=== PATIENT | female | born 1990 | race African-American/Black ===

== ENCOUNTER 2020-01-28 08:00 | Outpatient (CLI) | payer OTHER ==
[2020-01-28 19:40] LABS: CANDIDA KRUSEI DNA NEGATIVE (NEGATIVE)
[2020-01-28 19:41] LABS: CANDIDA GROUP DNA NEGATIVE (NEGATIVE); TRICHOMONAS VAGINALIS DNA NEGATIVE (NEGATIVE)
== END 2020-01-28 23:59 | disposition home or self-care (01) ==
LOC: LAB.R 08:00
PROVIDERS: ATTEND Obstetrics & Gynecology
DX: N76.0 Acute vaginitis (principal)
CPT/HCPCS: 87661; 87801

== ENCOUNTER 2020-02-21 15:24 | Outpatient (CLI) | payer OTHER ==
[2020-02-21 15:40] VITALS: BP 115/60
--- NOTE | 2020-02-21 15:57 | PROVIDER PROGRESS NOTE ---
- HPI Chief Complaint: Other (29yo at 31 weeks by LMP c/w first trimester scan presents with concern about a bulge from her vagina noted last night. No pain, no fluid leak or bleeding. No n/v/c/f or dysuria. No contractions. Reports normal activity. States she was looking at herself and noted the bulge.) Current : Vital Signs Temperature 99.5 F 02/21/20 15:39 Heart Rate 96 02/21/20 15:39 Respiratory Rate 19 02/21/20 15:39 Blood Pressure 115/60 02/21/20 15:39 O2 Saturation 100 02/21/20 15:39 Temperature 99.5 F 02/21/20 15:39 Heart Rate 96 02/21/20 15:39 Respiratory Rate 19 02/21/20 15:39 Blood Pressure 115/60 02/21/20 15:39 O2 Saturation 100 02/21/20 15:39 - Exam No distress, normal appearance. Abd soft, gravid, non-tender. VE/ Normal female. Small cystocele that bulges to hymenal ring with valsalva. Small amount normal DC, cervix visually long/closed. - Procedures OB Procedure Performed: Other ( monitor; no contractions, category 1) Service Date of procedure: 02/21/20 - Plan Plan: Stable. Reassured. Plan DC home. F/U as scheduled in 10 days.
== END 2020-02-21 15:50 | disposition home or self-care (01) ==
LOC: WFO 15:24 → FBP 15:25 → WFO 15:50
PROVIDERS: ATTEND Obstetrics & Gynecology
DX: Z34.83 Encounter for supervision of other normal pregnancy, third trimester (principal)
CPT/HCPCS: 99212; 99213

== ENCOUNTER 2020-03-05 12:07 | Outpatient (CLI) | payer OTHER ==
[2020-03-05 12:13] VITALS: BP 94/45
--- NOTE | 2020-03-05 13:18 | Labor Flowsheet ---
Labor Flowsheet Datetime Report Generated by CPN: 03/05/2020 13:17 Datetime: 03/05/2020 12:42 UTERINE ACTIVITY Frequency (min): 0 ASSESSMENT A Monitor Mode: External US FHR Baseline Rate : 145 Variability: Moderate 6-25 bpm Accelerations: 15X15 Decelerations: None Category: Category I Comments: change in baseline to 135's, NST due to arrythmia Datetime: 03/05/2020 12:36 VITAL SIGNS NBP Sys/Faviola/Mean (mmHg): 112 : 64 : 75 Pulse: 89 COMMUNICATION LaborFlag: Labor Datetime: 03/05/2020 12:34 SpO2 (%): 100 Datetime: 03/05/2020 12:17 Patient Care Comments: apple juice brought to patient Datetime: 03/05/2020 12:08 Stage of : Labor PATIENT CARE Patient Position/Activity: Left Lateral
--- NOTE | 2020-03-12 23:09 | PROCEDURE REPORT ---
- HPI Diagnosis/Indication for NST: Other ( arrythmia) Current EDU 04/24/20 Gestation 32 Weeks and 6 Days 3 Para 2 Vital Signs Temperature 98.1 F 03/05/20 12:12 Heart Rate 94 03/05/20 12:12 Respiratory Rate 17 03/05/20 12:12 Blood Pressure 94/45 L 03/05/20 12:12 O2 Saturation 100 03/05/20 12:12 Temperature 98.1 F 03/05/20 12:12 Heart Rate 94 03/05/20 12:12 Respiratory Rate 17 03/05/20 12:12 Blood Pressure 94/45 L 03/05/20 12:12 O2 Saturation 100 03/05/20 12:12 - NST Procedure NST Procedure Start Date 03/05/20 Start Time 12:05 Vibroacoustic Stimulation Used No Patient States Movement Yes EFM 145 mod cristy 15x15 accels no decels TOCO: quiet - Results and Plan Findings/Impression: Patient is a 29-year-old G3, P2 at 32 weeks 6 days with a complicated by arrhythmia. -Category 1 tracing -Continue twice-weekly NST -Warning signs reviewed -Continue with routine OB care. -Discharge to home
== END 2020-03-05 12:45 | disposition home or self-care (01) ==
LOC: WFO 12:07 → FBP 12:08 → WFO 12:45
PROVIDERS: ATTEND Obstetrics & Gynecology
DX: O36.8330 Maternal care for abnormalities of the fetal heart rate or rhythm, third trimester, not applicable or unspecified (principal); Z3A.32 32 weeks gestation of pregnancy
CPT/HCPCS: 59025

== ENCOUNTER 2020-03-12 17:28 | Outpatient (CLI) | payer OTHER ==
--- NOTE | 2020-03-14 09:07 | Ultrasound Report ---
Reason: ARRHYTHMIA Procedure Date: 03/12/2020 Accession Number: [id number] / [id number] Procedure: US - OB Limited CPT Code: Final Report FULL RESULT: EXAM: LIMITED OBSTETRICAL ULTRASOUND EXAM DATE: 03/12/2020 07:30 PM. CLINICAL HISTORY: arrhythmia. COMPARISON: None. TECHNIQUE: Real-time sonographic evaluation of the fetus performed by the clinical safety manager. Multiple access services representative static images were saved for review. DATING: Established EGA 33 weeks, 6 days with SONIA 04/24/2020. GENERAL EVALUATION Hendricks . Cardiac activity: 137 bpm. movement: Visualized. Presentation: Cephalic Placenta: Posterior position. Amniotic fluid: Normal. ALLY 18.2 cm. MVP 6.2 cm. ANATOMY anatomic assessment not performed on the current study. MATERNAL STRUCTURES Limited assessment of the maternal structures is unremarkable. IMPRESSION: 1. Hendricks live intrauterine with gestational age 33 weeks, 6 days based on established SONIA. 2. Normal ALLY. ALLY 18.2 cm. MVP 6.2 cm. RADIA
== END 2020-03-12 17:29 | disposition home or self-care (01) ==
LOC: DI 17:28
PROVIDERS: ATTEND Obstetrics & Gynecology
DX: O36.8330 Maternal care for abnormalities of the fetal heart rate or rhythm, third trimester, not applicable or unspecified (principal); Z3A.33 33 weeks gestation of pregnancy
CPT/HCPCS: 76815

== ENCOUNTER 2020-03-30 08:00 | Outpatient (CLI) | payer OTHER ==
[2020-03-30 20:55] LABS: TRICHOMONAS VAGINALIS DNA NEGATIVE (NEGATIVE)
== END 2020-03-30 23:59 | disposition home or self-care (01) ==
LOC: LAB.R 08:00
PROVIDERS: ATTEND Obstetrics & Gynecology
DX: Z36.85 Encounter for antenatal screening for Streptococcus B (principal); Z36.89 Encounter for other specified antenatal screening
CPT/HCPCS: 87491; 87591; 87661; 87797

== ENCOUNTER 2020-03-30 08:34 | Outpatient (CLI) | payer OTHER ==
--- NOTE | 2020-04-02 16:07 | Ultrasound Report ---
Reason: ARRHYTHMIA Procedure Date: 03/30/2020 Accession Number: [id number] / [id number] Procedure: US - OB Limited CPT Code: Final Report FULL RESULT: PROCEDURE: OB Limited INDICATIONS: ARRHYTHMIA OUTSIDE/PRIOR DATING DATA: Last menstrual period (LMP): 07/19/2019. LMP-based estimated date of delivery (SONIA): 04/19/2020. First dating scan (date and location): 09/24/2019. Estimated date of delivery (SONIA) from first dating scan: 04/24/2020. TECHNIQUE: Real-time scanning was performed of the fetus, with image documentation. COMPARISON: 03/18/2020. FINDINGS: A single living intrauterine gestation is present. Presentation: Vertex Placenta: Placental position is posterior, without previa. Amniotic fluid index: 12.8 cm, largest pocket 4.2 cm, 41st percentile for gestational age. heart rate: 140 beats per minutes. Maternal cervical canal: Not visualized. Estimated gestational age from initial scan: 36 weeks 3 days. IMPRESSION: 1. Single live intrauterine at 36 weeks 3 days. 2. ALLY measures 12.8, compared to 18.2 on prior exam. Currently it is at the 41st percentile for gestational age. Reviewed by: Renea Sheikh MD on 04/02/2020 4:06 PM PDT Approved by: Renea Sheikh MD on 04/02/2020 4:06 PM PDT Station ID: [id number]
== END 2020-03-30 08:35 | disposition home or self-care (01) ==
LOC: DI 08:34
PROVIDERS: ATTEND Obstetrics & Gynecology
DX: O36.8330 Maternal care for abnormalities of the fetal heart rate or rhythm, third trimester, not applicable or unspecified (principal); Z3A.36 36 weeks gestation of pregnancy
CPT/HCPCS: 76815

== ENCOUNTER 2020-03-30 09:11 | Outpatient (CLI) | payer OTHER ==
[2020-03-30 09:19] VITALS: BP 109/68
--- NOTE | 2020-04-01 10:12 | PROCEDURE REPORT ---
- HPI Diagnosis/Indication for NST: Intrauterine growth restriction Current EDU 04/24/20 Gestation 36 Weeks and 3 Days 3 Para 2 Vital Signs Temperature 36.8 C 03/30/20 09:17 Heart Rate 97 03/30/20 09:17 Respiratory Rate 18 03/30/20 09:17 Blood Pressure 109/68 03/30/20 09:17 O2 Saturation 100 03/30/20 09:17 Temperature 36.8 C 03/30/20 09:17 Heart Rate 97 03/30/20 09:17 Respiratory Rate 18 03/30/20 09:17 Blood Pressure 109/68 03/30/20 09:17 O2 Saturation 100 03/30/20 09:17 - NST Procedure NST Procedure Start Date 03/30/20 Start Time 09:12 Stop Time 09:32 Vibroacoustic Stimulation Used No Patient States Movement Yes - Results and Plan Findings/Impression: BASELINE 130 Accelerations present Reactive Plan: continue twice weekly NST
== END 2020-03-30 09:35 | disposition home or self-care (01) ==
LOC: WFO 09:11 → FBP 09:12 → WFO 09:35
PROVIDERS: ATTEND Obstetrics & Gynecology
DX: O36.5930 Maternal care for other known or suspected poor fetal growth, third trimester, not applicable or unspecified (principal); O36.8330 Maternal care for abnormalities of the fetal heart rate or rhythm, third trimester, not applicable or unspecified; Z36.85 Encounter for antenatal screening for Streptococcus B; Z36.89 Encounter for other specified antenatal screening; Z3A.36 36 weeks gestation of pregnancy
CPT/HCPCS: 59025; 76815; 87491; 87591; 87661; 87797

== ENCOUNTER 2020-04-02 09:58 | Outpatient (CLI) | payer OTHER ==
[2020-04-02 10:07] VITALS: BP 107/64
--- NOTE | 2020-04-22 12:22 | PROCEDURE REPORT ---
- HPI Diagnosis/Indication for NST: Other ( arrythmia) Current EDU 04/24/20 Gestation 36 Weeks and 6 Days 3 Para 2 Vital Signs Heart Rate 95 04/02/20 10:05 Respiratory Rate 20 04/02/20 10:05 Blood Pressure 107/64 04/02/20 10:05 O2 Saturation 100 04/02/20 10:05 Temperature Heart Rate 95 04/02/20 10:05 Respiratory Rate 20 04/02/20 10:05 Blood Pressure 107/64 04/02/20 10:05 O2 Saturation 100 04/02/20 10:05 - NST Procedure NST Procedure Start Date 04/02/20 Start Time 10:00 Stop Time 10:40 Vibroacoustic Stimulation Used No Patient States Movement Yes EFM 135 mod cristy 15x15 accels no decels TOCO: irritable No evidence of arrythmia - Results and Plan Findings/Impression: 29 yo at 36+6 wga here for NST d/t arrythmia Cat I tracing Cont with twice weekly NST and weekly ALLY
== END 2020-04-02 10:45 | disposition home or self-care (01) ==
LOC: FBP 09:58 → WFO 09:58
PROVIDERS: ATTEND Obstetrics & Gynecology
DX: O36.831 Maternal care for abnormalities of the fetal heart rate or rhythm, first trimester (principal); O36.5993 Maternal care for other known or suspected poor fetal growth, unspecified trimester, fetus 3; Z3A.36 36 weeks gestation of pregnancy
CPT/HCPCS: 59025; 76816

== ENCOUNTER 2020-04-02 10:52 | Outpatient (CLI) | payer OTHER ==
--- NOTE | 2020-04-02 13:36 | Ultrasound Report ---
Reason: GROWTH RETARDATION Procedure Date: 04/02/2020 Accession Number: [id number] / [id number] Procedure: US - OB F/U or Repeat CPT Code: Final Report FULL RESULT: PROCEDURE: OB F/U or Repeat INDICATIONS: GROWTH RETARDATION OUTSIDE/PRIOR DATING DATA: Last menstrual period (LMP): 07/19/2019. LMP-based estimated date of delivery (SONIA): 04/05/2020. First dating scan (date and location): 09/24/2019. Estimated date of delivery (SONIA) from first dating scan: 04/24/2020. TECHNIQUE: Real-time scanning was performed of the fetus, with image documentation and biometric measurements. Endovaginal scanning: Not necessary. COMPARISON: 03/30/2020 FINDINGS: General: A single living intrauterine gestation is present. Presentation: Vertex Placenta: Placental position is posterior, without previa. Amniotic fluid index: 12.3 cm, normal for gestational age. heart rate: 150 beats per minute. Maternal cervical canal: Not seen due to Vertex presentation. biometrics: Biparietal diameter: 8.8 cm, 35 weeks 4 days Head circumference: 31.8 cm, 35 weeks 5 days Abdominal circumference: 31.8 cm, 35 weeks 5 days Femur length: 6.7 cm, 34 weeks 3 days Estimated gestational age from initial scan: 36 weeks 6 days. Composite gestational age from present scan: 35 weeks 3 days Estimated weight and percentile: 12/05/1937 9 g, lower 18th percentile Measurement variability in biometric dating: +/- 10 days from 12-20 weeks gestation, +/- 2 weeks from 20-30 weeks gestation, +/- 3 weeks at 30 weeks gestation or more. Other: Not applicable. IMPRESSION: Normal amniotic fluid volume. The current estimated weight is within the normal range for most accurate gestational age estimate from the first OB ultrasound. Vertex presentation, posterior placenta, the delivery date is projected to be centered on 04/24/2020. Reviewed by: Raghu Hernandez MD on 04/02/2020 1:35 PM PDT Approved by: Raghu Hernandez MD on 04/02/2020 1:35 PM PDT Station ID: [id number]
== END 2020-04-02 10:53 | disposition home or self-care (01) ==
LOC: DI 10:52
PROVIDERS: ATTEND Obstetrics & Gynecology
DX: O36.5990 Maternal care for other known or suspected poor fetal growth, unspecified trimester, not applicable or unspecified (principal); O36.8990 Maternal care for other specified fetal problems, unspecified trimester, not applicable or unspecified; Z3A.35 35 weeks gestation of pregnancy
CPT/HCPCS: 76816

== ENCOUNTER 2020-04-06 07:44 | Outpatient (CLI) | payer OTHER ==
--- NOTE | 2020-04-06 10:45 | Ultrasound Report ---
Reason: ARRHYTHMIA Procedure Date: 04/06/2020 Accession Number: [id number] / [id number] Procedure: US - OB Limited CPT Code: Final Report FULL RESULT: PROCEDURE: OB Limited INDICATIONS: ARRHYTHMIA OUTSIDE/PRIOR DATING DATA: Last menstrual period (LMP): 07/19/2019. LMP-based estimated date of delivery (SONIA): 04/19/2020. First dating scan (date and location): 09/24/2019. Estimated date of delivery (SONIA) from first dating scan: 04/24/2020. TECHNIQUE: Real-time scanning was performed of the fetus, with image documentation. COMPARISON: OB ultrasound 03/30/2020, 04/02/2020. FINDINGS: A single living intrauterine gestation is present. Presentation: Cephalic Placenta: Placental position is posterior, without previa. Amniotic fluid index: 12.7 cm, 42nd percentile for gestational age. Largest pocket measures 4.5 cm heart rate: 139 beats per minutes. Maternal cervical canal: Not visualized Estimated gestational age from initial scan: 37 weeks 3 days. IMPRESSION: 1. Single live intrauterine . 2. ALLY is within normal limits. Reviewed by: Renea Sheikh MD on 04/06/2020 10:44 AM PDT Approved by: Renea Sheikh MD on 04/06/2020 10:44 AM PDT Station ID: [id number]
== END 2020-04-06 07:45 | disposition home or self-care (01) ==
LOC: DI 07:44
PROVIDERS: ATTEND Obstetrics & Gynecology
DX: O36.8990 Maternal care for other specified fetal problems, unspecified trimester, not applicable or unspecified (principal); Z3A.37 37 weeks gestation of pregnancy
CPT/HCPCS: 76815

== ENCOUNTER 2020-04-06 08:27 | Outpatient (CLI) | payer OTHER ==
[2020-04-06 08:36] VITALS: BP 103/66
--- NOTE | 2020-04-22 12:36 | PROCEDURE REPORT ---
- HPI Diagnosis/Indication for NST: Other ( arrythmia) Current EDU 04/24/20 Gestation 37 Weeks and 3 Days 3 Para 2 Vital Signs Temperature 98.1 F 04/06/20 08:00 Heart Rate 106 H 04/06/20 08:00 Respiratory Rate 16 04/06/20 08:00 Blood Pressure 103/66 04/06/20 08:00 O2 Saturation 100 04/06/20 08:00 Temperature 98.1 F 04/06/20 08:00 Heart Rate 106 H 04/06/20 08:00 Respiratory Rate 16 04/06/20 08:00 Blood Pressure 103/66 04/06/20 08:00 O2 Saturation 100 04/06/20 08:00 - NST Procedure NST Procedure Start Date 04/06/20 Start Time 08:29 Stop Time 09:00 Vibroacoustic Stimulation Used Yes Patient States Movement Yes EFM 125 mod 15x15 accels no decels TOCO: quiet - Results and Plan Findings/Impression: 29 yo at 37+2 wga here for NST for arrythmia CAt I tracing Cont with twice weekly NST and weekly ALLY
== END 2020-04-06 09:00 | disposition home or self-care (01) ==
LOC: WFO 08:27 → FBP 08:28 → WFO 09:00
PROVIDERS: ATTEND Obstetrics & Gynecology
DX: O36.8990 Maternal care for other specified fetal problems, unspecified trimester, not applicable or unspecified (principal); Z3A.37 37 weeks gestation of pregnancy
CPT/HCPCS: 59025; 76815

== ENCOUNTER 2020-04-09 07:34 | Outpatient (CLI) | payer OTHER ==
[2020-04-09 08:10] VITALS: BP 112/61
--- NOTE | 2020-04-22 14:22 | PROCEDURE REPORT ---
- HPI Diagnosis/Indication for NST: Other ( arythmia) Current EDU 04/24/20 Gestation 37 Weeks and 6 Days 3 Para 2 Vital Signs Temperature 36.9 C 04/09/20 07:25 Heart Rate 91 04/09/20 07:25 Respiratory Rate 16 04/09/20 07:25 Blood Pressure 112/61 04/09/20 07:25 Temperature 36.9 C 04/09/20 07:25 Heart Rate 91 04/09/20 07:25 Respiratory Rate 16 04/09/20 07:25 Blood Pressure 112/61 04/09/20 07:25 O2 Saturation - NST Procedure NST Procedure Start Date 04/09/20 Start Time 07:25 Stop Time 07:54 Vibroacoustic Stimulation Used No Patient States Movement Yes - Results and Plan Findings/Impression: reactive NST Plan: continue with antinatal testing
== END 2020-04-09 08:00 | disposition home or self-care (01) ==
LOC: WFO 07:34 → FBP 07:35 → WFO 08:00
PROVIDERS: ATTEND Obstetrics & Gynecology
DX: O36.8330 Maternal care for abnormalities of the fetal heart rate or rhythm, third trimester, not applicable or unspecified (principal); Z3A.37 37 weeks gestation of pregnancy
CPT/HCPCS: 59025

== ENCOUNTER 2020-04-13 09:03 | Outpatient (CLI) | payer OTHER ==
[2020-04-13 09:13] VITALS: BP 109/65
--- NOTE | 2020-04-22 12:43 | PROCEDURE REPORT ---
- HPI Diagnosis/Indication for NST: Other ( arrythmia) Current EDU 04/24/20 Gestation 38 Weeks and 3 Days 3 Para 2 Vital Signs Temperature 98.2 F 04/13/20 09:13 Heart Rate 100 04/13/20 09:13 Respiratory Rate 18 04/13/20 09:13 Blood Pressure 109/65 04/13/20 09:13 O2 Saturation 100 04/13/20 09:13 Temperature 98.2 F 04/13/20 09:13 Heart Rate 100 04/13/20 09:13 Respiratory Rate 18 04/13/20 09:13 Blood Pressure 109/65 04/13/20 09:13 O2 Saturation 100 04/13/20 09:13 - NST Procedure NST Procedure Start Date 04/13/20 Start Time 08:57 Stop Time 09:30 Vibroacoustic Stimulation Used No Patient States Movement Yes EFM 135 mod cristy 15x15 accels no decels TOCO: quiet - Results and Plan Findings/Impression: 29 yo at 38+3 with arrythmia here for NST Cat I tracing Twice weekly NST and weekly ALLY IOL at 39 wga
== END 2020-04-13 09:30 | disposition home or self-care (01) ==
LOC: WFO 09:03 → FBP 09:06 → WFO 09:30
PROVIDERS: ATTEND Obstetrics & Gynecology
DX: O36.832 Maternal care for abnormalities of the fetal heart rate or rhythm, second trimester (principal); Z3A.38 38 weeks gestation of pregnancy
CPT/HCPCS: 59025; 76815

== ENCOUNTER 2020-04-16 07:25 | Outpatient (CLI) | payer OTHER ==
[2020-04-16 07:31] VITALS: BP 114/68
--- NOTE | 2020-05-05 12:53 | PROCEDURE REPORT ---
- HPI Current [facility] 04/24/20 Gestation 38 Weeks and 6 Days 3 Para 2 Vital Signs Temperature 98.1 F 04/16/20 07:30 Heart Rate 94 04/16/20 07:30 Respiratory Rate 18 04/16/20 07:30 Blood Pressure 114/68 04/16/20 07:30 O2 Saturation 100 04/16/20 07:30 Temperature 98.1 F 04/16/20 07:30 Heart Rate 94 04/16/20 07:30 Respiratory Rate 18 04/16/20 07:30 Blood Pressure 114/68 04/16/20 07:30 O2 Saturation 100 04/16/20 07:30 - NST Procedure NST Procedure Start Date 04/16/20 Start Time 07:25 Stop Time 07:55 Vibroacoustic Stimulation Used No Patient States Movement Yes - Results and Plan Findings/Impression: 29yo at 38w6d for NST secondary to arrhythmia. Reactive. Category 1. F/U as scheduled
== END 2020-04-16 08:00 | disposition home or self-care (01) ==
LOC: WFO 07:25 → FBP 07:31 → WFO 08:00
PROVIDERS: ATTEND Obstetrics & Gynecology
DX: O36.8330 Maternal care for abnormalities of the fetal heart rate or rhythm, third trimester, not applicable or unspecified (principal); Z3A.38 38 weeks gestation of pregnancy
CPT/HCPCS: 59025

== ENCOUNTER 2020-04-17 13:29 | Inpatient (IN) | payer OTHER ==
[2020-04-17] MEDS ORDERED: SODIUM CHLORIDE FLUSH 0.9% 10 ML SYRINGE IVP PRN (15:36)
[2020-04-17] MEDS ORDERED: OXYTOCIN/SODIUM CHLORIDE 500 ML IV PRN (15:36)
[2020-04-17] MEDS ORDERED: ONDANSETRON 4 MG/2 ML VIAL IVP PRN ×2 (15:36→19:31)
[2020-04-17] MEDS ORDERED: fentaNYL 100 MCG/2 ML VIAL IVP PRN (15:36)
--- NOTE | 2020-04-17 15:43 | HISTORY & PHYSICAL EXAMINATION ---
Admit History - Visit Reason Visit Reason: Other (29yo at 39w0d by LMP c/w first trimester US presents for scheduled IOL secondary to arrhythmia. No n/v/f/c or dysuria. No fluid leak or bleeding. Rare, mild ctx. Normal activity.) - : 3 Parity: 2 Premature: 0 Ectopic: 0 : 0 Care: positive: [facility], [facility]-[place] Risk/History: positive: Labor induction Complications This : positive: Other ( arrhythmia, abnormal PAP) Smoking Status: Never smoker - Mother's Labs Mother's Blood Type: positive: O Mother's RH: positive: Negative (Rhogam given) GBS: positive: Group B Strep Positive Rubella Status: positive: Non-immune (HIV/HepB/RPR NR GC/chlam neg Glucola 98) Meds/Allgy - Home Medications Home Medications: Ambulatory Orders Medication Instructions Recorded Confirmed Vit,Calc76/Iron/Folic 1 tab PO DAILY 04/17/20 04/17/20 [Pnv 29-1 Tablet] - Allergies Allergies/Adverse Reactions: Allergies Allergy/AdvReac Type Severity Reaction Status Date / Time No Known Drug Allergies Allergy Verified 04/17/20 15:08 Review of Systems - All Other Systems All Other Systems: reports: Other (As noted; otherwise negative) Physical - Abdominal Exam Vital Signs: Temp Pulse Resp BP Pulse Ox 98.1 F 94 16 04/17/20 14:54 04/17/20 14:54 04/17/20 14:54 Contraction Frequency (min/apart): Rare, mild Contraction Intensity: positive: Mild Uterine Resting Tone: positive: Soft - Monitoring Strip Review: positive: Category I - Presentation Presentation: positive: Vertex (By scan) - Vaginal Exam Membranes: positive: Membranes intact Dilation (in cm): 2 Effacement (%): 50 Station: positive: -2 Cervical Position: positive: Posterior Plan for Labor - Plan For Labor Plan for Labor: 29yo at 39 weeks GBS+, O neg admitted for IOL secondary to arrhythmia. Currently, reactive NST, no evidence of arrhythmia. Planning epidural Start ampicillin IV fluids CBC, T&S Will place cervical balloon, start miso. Transition to pitocin as indicated. EFW 3000gm; expect Exam - Exam Vital Signs: Vital Signs (72 hours) 04/17/20 14:54 Temperature 98.1 F Heart Rate 94 Respiratory 16 Rate General: Alert, Oriented x3, Cooperative Lungs: Clear to auscultation, Normal air movement Cardiovascular: Regular rate (3/6 systolic murmur across precordium) Abdomen: Soft, No tenderness (Gravid, S=D) Extremities: No edema Skin: No rashes Psych/Mental Status: Mental status NL
[2020-04-17 15:49] LABS: BASOPHILS % (AUTO) 0.1 %; EOSINOPHILS # (AUTO) 0.1 10^3/uL (0.0-0.7); EOSINOPHILS % (AUTO) 0.6 %; HGB - HEMOGLOBIN 9.8 g/dL (12.0-16.0); LYMPHOCYTES # (AUTO) 1.9 10^3/uL (1.5-3.5); LYMPHOCYTES % (AUTO) 23.8 %; MEAN CORPUSCULAR HEMOGLOBIN 27.8 pg (27.0-31.0); MEAN CORPUSCULAR HGB CONC 31.6 g/dL (32.0-36.0); MEAN CORPUSCULAR VOLUME 88.1 fL (81.0-99.0); MEAN PLATELET VOLUME 9.8 fL (7.9-10.8); MONOCYTES # (AUTO) 0.9 10^3/uL (0.0-1.0); MONOCYTES % (AUTO) 11.6 %; NEUTROPHILS # (AUTO) 5.1 10^3/uL (1.5-6.6); PLT - PLATELET COUNT 238 10^3/uL (130-450); RED BLOOD COUNT 3.52 10^6/uL (4.20-5.40); WHITE BLOOD COUNT 8.1 x10^3/uL (4.8-10.8)
[2020-04-17] MEDS ORDERED: OXYTOCIN/SODIUM CHLORIDE 500 ML IV SCH (16:00)
--- NOTE | 2020-04-17 16:10 | PROVIDER PROGRESS NOTE ---
Subjective - Prog Note Date Prog Note Date: 04/17/20 Prog Note Time: 16:09 - Subjective Subjective: Comfortable VSS afeb Category 1 tracing Cervical balloon placed. 60cc water in uterine balloon, 40cc in vaginal Amp and miso started. Objective - Vital Signs/Intake & Output Vital Signs: Vital Signs x48h Temp Pulse Resp 04/17/20 14:54 98.1 F 94 16 - Lab Results Fish Bones: 04/17/20 14:25 Other Labs: Lab Results x24hrs 04/17/20 Range/Units 14:25 WBC 8.1 (4.8-10.8) x10^3/uL RBC 3.52 L (4.20-5.40) 10^6/uL Hgb 9.8 L (12.0-16.0) g/dL Hct 31.0 L (37.0-47.0) % MCV 88.1 (81.0-99.0) fL MCH 27.8 (27.0-31.0) pg MCHC 31.6 L (32.0-36.0) g/dL RDW 15.0 (12.0-15.0) % Plt Count 238 (130-450) 10^3/uL MPV 9.8 (7.9-10.8) fL Neut # (Auto) 5.1 (1.5-6.6) 10^3/uL Lymph # (Auto) 1.9 (1.5-3.5) 10^3/uL [place] # (Auto) 0.9 (0.0-1.0) 10^3/uL Eos # (Auto) 0.1 (0.0-0.7) 10^3/uL Baso # (Auto) 0.0 (0.0-0.1) 10^3/uL Absolute Nucleated RBC 0.00 x10^3/uL Nucleated RBC % 0.0 /100WBC
[2020-04-17] MEDS: LACTATED RINGERS 1,000 ML IV SCH ×2 (16:20→20:01)
[2020-04-17] MEDS ORDERED: miSOPROStoL 100 MCG TABLET PO SCH (17:00)
[2020-04-17] MEDS ORDERED: SODIUM CHLORIDE FLUSH 0.9% 10 ML SYRINGE IVP SCH (17:00)
[2020-04-17] MEDS ORDERED: AMPICILLIN 2 GM in SODIUM CHLORIDE 0.9% MINIBAG 100 ML IV ONE (17:00)
[2020-04-17] MEDS ORDERED: ROPIVACAINE 0.2% 200 MG/100 ML BAG EP ONE (19:04)
[2020-04-17] MEDS ORDERED: NALBUPHINE 10 MG/ML AMP IVP PRN (19:31)
[2020-04-17] MEDS ORDERED: diphenhydrAMINE INJ 50 MG/ML VIAL IVP PRN (19:31)
[2020-04-17] MEDS ORDERED: LACTATED RINGERS 500 ML IV ONE (19:31)
[2020-04-17] MEDS ORDERED: METOCLOPRAMIDE 10 MG/2 ML VIAL IVP PRN (19:31)
[2020-04-17] MEDS ORDERED: ePHEDrine 50 MG/ML VIAL IVP PRN (19:31)
[2020-04-17] MEDS ORDERED: ROPIVACAINE 0.2% 200 MG/100 ML BAG EP PRN (19:31)
[2020-04-17] MEDS ORDERED: NALOXONE 0.4 MG/ML VIAL IVP PRN (19:31)
--- NOTE | 2020-04-17 19:35 | ANESTHESIA ---
Pre-Anesthesia VS, & Labs - Diagnosis active labor - Procedure labor epidural Vital Signs: Temp Pulse Resp BP Pulse Ox 36.7 C 94 16 04/17/20 14:54 04/17/20 14:54 04/17/20 14:54 Height 5 ft 3 in Weight (kg) 71.668 kg - NPO >8 hours - Is Patient ?: Yes - Lab Results Current Lab Results: Laboratory Tests 04/17/20 14:25: WBC 8.1, RBC 3.52 L, Hgb 9.8 L, Hct 31.0 L, MCV 88.1, MCH 27.8, MCHC 31.6 L, RDW 15.0, Plt Count 238, MPV 9.8, Neut # (Auto) 5.1, Lymph # (Auto) 1.9, [place] # (Auto) 0.9, Eos # (Auto) 0.1, Baso # (Auto) 0.0, Absolute Nucleated RBC 0.00, Nucleated RBC % 0.0 04/17/20 14:25: Blood Type O NEGATIVE, Antibody Screen NEGATIVE Fish Bones: 04/17/20 14:25 Home Medications and Allergies Home Medications: Ambulatory Orders Vit,Calc76/Iron/Folic [Pnv 29-1 Tablet] 1 tab PO DAILY 04/17/20 Active Medications Acetaminophen (Tylenol) 650 mg PO Q6H PRN PRN Reason: PAIN Diphenhydramine HCl (Benadryl Inj) 12.5 - 25 mg IVP Q6HR PRN PRN Reason: ITCHING Ephedrine Sulfate () 5 mg IVP Q5M PRN PRN Reason: For SBP<100;give until SBP>100 Fentanyl (Fentanyl) 50 mcg IVP Q1H PRN PRN Reason: PAIN Ampicillin Sodium 1 gm/ Sodium (Chloride) 100 mls @ 200 mls/hr IV Q4H ROXANNE Oxytocin/Sodium Chloride (Pitocin/Sodium Chloride) 500 mls @ 1 mls/hr IV TITR ROXANNE; Protocol Oxytocin/Sodium Chloride (Pitocin/Sodium Chloride) 500 mls @ 999 mls/hr IV PRN PRN; Protocol PRN Reason: POST- HEMORR PREVENTION Lactated Ringer's (Lr) 1,000 mls @ 250 mls/hr IV .Q4H ROXANNE Last Admin: 04/17/20 16:20 Dose: 250 mls/hr Documented by: Lactated Ringer's (Lr) 500 mls @ 999 mls/hr IV ONCE ONE Stop: 04/17/20 20:01 Ropivacaine (Naropin 0.2%) 200 mg in 100 mls @ 0 mls/hr EP PRN PRN; Protocol PRN Reason: PAIN Metoclopramide HCl (Reglan Inj) 10 mg IVP Q6HR PRN PRN Reason: Nausea / Vomiting Misoprostol (Cytotec) 50 mcg PO Q4H [facility] Stop: 04/18/20 13:01 Last Admin: 04/17/20 16:31 Dose: 50 mcg Documented by: Nalbuphine HCl (Nubain) 2.5 - 5 mg IVP Q4H PRN PRN Reason: ITCHING Naloxone HCl (Narcan) 0.1 mg IVP Q2M PRN PRN Reason: RR<8 Ondansetron HCl (Zofran Inj) 4 mg IVP Q4H PRN PRN Reason: Nausea / Vomiting Ondansetron HCl (Zofran Inj) 4 mg IVP Q6HR PRN PRN Reason: Nausea / Vomiting Sodium Chloride (Normal Saline Flush 0.9%) 10 ml IVP PRN PRN PRN Reason: NEEDED PER PROVIDER ORDERS Sodium Chloride (Normal Saline Flush 0.9%) 10 ml IVP 0100,0900,1700 [facility] Vit,Calc76/Iron/Folic [Pnv 29-1 Tablet] 1 tab PO DAILY 04/17/20 Allergies/Adverse Reactions: Allergies Allergy/AdvReac Type Severity Reaction Status Date / Time No Known Drug Allergies Allergy Verified 04/17/20 15:08 Anes History & Medical History - Anesthetic History Anesthesia Complications: reports: No previous complications - Medical History Cardiovascular: reports: None Pulmonary: reports: None Urinary: reports: None Neuro: reports: None Smoking Status: Never smoker - Obstetrical History : 3 Parity: 2 Events: positive: Labor induction Complications: positive: Other ( arrhythmia, abnormal PAP) Exam General: Alert Dental: WNL Mouth Openin Fingerbreadth Neck Mobility: Normal Mallampati classification: III Thyromental Distance: greater than 6 cm Respiratory: Lungs clear Cardiovascular: Regular rate Plan Anesthesia Type: Epidural Consent for Procedure(s) Verified and Reviewed: Yes Code Status: Attempt Resuscitation ASA classification: 2-Mild systemic disease Is this case an emergency?: No
--- NOTE | 2020-04-17 20:13 | PROVIDER PROGRESS NOTE ---
Subjective - Prog Note Date Prog Note Date: 04/17/20 Prog Note Time: 19:45 - Subjective Subjective: Very comfortable with epidural. VSS afeb Contractions q2-4 Category 1 tracing Liang placed for 350cc clear urine Cervical balloon in place, cervix 3cm/80/-2 A/P Next miso vs pit due at 20:30 Objective - Vital Signs/Intake & Output Vital Signs: Vital Signs x48h Temp Pulse Resp 04/17/20 14:54 98.1 F 94 16 Intake & Output: Intake & Output 04/14/20 04/15/20 04/16/20 04/17/20 23:59 23:59 23:59 23:59 Intake Total 920.833 Balance 920.833 - Lab Results Fish Bones: 04/17/20 14:25 Other Labs: Lab Results x24hrs 04/17/20 04/17/20 Range/Units 14:25 14:25 WBC 8.1 (4.8-10.8) x10^3/uL RBC 3.52 L (4.20-5.40) 10^6/uL Hgb 9.8 L (12.0-16.0) g/dL Hct 31.0 L (37.0-47.0) % MCV 88.1 (81.0-99.0) fL MCH 27.8 (27.0-31.0) pg MCHC 31.6 L (32.0-36.0) g/dL RDW 15.0 (12.0-15.0) % Plt Count 238 (130-450) 10^3/uL MPV 9.8 (7.9-10.8) fL Neut # (Auto) 5.1 (1.5-6.6) 10^3/uL Lymph # (Auto) 1.9 (1.5-3.5) 10^3/uL [place] # (Auto) 0.9 (0.0-1.0) 10^3/uL Eos # (Auto) 0.1 (0.0-0.7) 10^3/uL Baso # (Auto) 0.0 (0.0-0.1) 10^3/uL Absolute Nucleated RBC 0.00 x10^3/uL Nucleated RBC % 0.0 /100WBC Blood Type O NEGATIVE Antibody Screen NEGATIVE
--- NOTE | 2020-04-17 20:51 | PROVIDER PROGRESS NOTE ---
Subjective - Prog Note Date Prog Note Date: 04/17/20 Prog Note Time: 20:50 - Subjective Subjective: Continues to be very comfortable VSS afeb UO last hour 200cc Category 1 tracing Contractions q3-4 PCN #2 due now Balloon now out. Exam deferred Will start pitocin Objective - Vital Signs/Intake & Output Vital Signs: Vital Signs x48h Temp Pulse Resp 04/17/20 14:54 98.1 F 94 16 Intake & Output: Intake & Output 04/14/20 04/15/20 04/16/20 04/17/20 23:59 23:59 23:59 23:59 Intake Total 920.833 Balance 920.833 - Lab Results Fish Bones: 04/17/20 14:25 Other Labs: Lab Results x24hrs 04/17/20 04/17/20 Range/Units 14:25 14:25 WBC 8.1 (4.8-10.8) x10^3/uL RBC 3.52 L (4.20-5.40) 10^6/uL Hgb 9.8 L (12.0-16.0) g/dL Hct 31.0 L (37.0-47.0) % MCV 88.1 (81.0-99.0) fL MCH 27.8 (27.0-31.0) pg MCHC 31.6 L (32.0-36.0) g/dL RDW 15.0 (12.0-15.0) % Plt Count 238 (130-450) 10^3/uL MPV 9.8 (7.9-10.8) fL Neut # (Auto) 5.1 (1.5-6.6) 10^3/uL Lymph # (Auto) 1.9 (1.5-3.5) 10^3/uL [place] # (Auto) 0.9 (0.0-1.0) 10^3/uL Eos # (Auto) 0.1 (0.0-0.7) 10^3/uL Baso # (Auto) 0.0 (0.0-0.1) 10^3/uL Absolute Nucleated RBC 0.00 x10^3/uL Nucleated RBC % 0.0 /100WBC Blood Type O NEGATIVE Antibody Screen NEGATIVE
[2020-04-17] MEDS: AMPICILLIN 1 GM in SODIUM CHLORIDE 0.9% MINIBAG 100 ML IV SCH (20:52)
--- NOTE | 2020-04-17 21:44 | PROVIDER PROGRESS NOTE ---
Subjective - Prog Note Date Prog Note Date: 04/17/20 Prog Note Time: 21:42 - Subjective Subjective: Comfortable, no pressure VSS afeb Category 1 Contractions now q2-3, pit not started. UO 175cc last hour Exam deferred. Lab signif for hgb 9.8; will rpt and give IV iron as appropriate. Continue expectant management Objective - Vital Signs/Intake & Output Vital Signs: Vital Signs x48h Temp Pulse Resp 04/17/20 14:54 98.1 F 94 16 Intake & Output: Intake & Output 04/14/20 04/15/20 04/16/20 04/17/20 23:59 23:59 23:59 23:59 Intake Total 920.833 Balance 920.833 - Lab Results Fish Bones: 04/17/20 14:25 Other Labs: Lab Results x24hrs 04/17/20 04/17/20 Range/Units 14:25 14:25 WBC 8.1 (4.8-10.8) x10^3/uL RBC 3.52 L (4.20-5.40) 10^6/uL Hgb 9.8 L (12.0-16.0) g/dL Hct 31.0 L (37.0-47.0) % MCV 88.1 (81.0-99.0) fL MCH 27.8 (27.0-31.0) pg MCHC 31.6 L (32.0-36.0) g/dL RDW 15.0 (12.0-15.0) % Plt Count 238 (130-450) 10^3/uL MPV 9.8 (7.9-10.8) fL Neut # (Auto) 5.1 (1.5-6.6) 10^3/uL Lymph # (Auto) 1.9 (1.5-3.5) 10^3/uL [place] # (Auto) 0.9 (0.0-1.0) 10^3/uL Eos # (Auto) 0.1 (0.0-0.7) 10^3/uL Baso # (Auto) 0.0 (0.0-0.1) 10^3/uL Absolute Nucleated RBC 0.00 x10^3/uL Nucleated RBC % 0.0 /100WBC Blood Type O NEGATIVE Antibody Screen NEGATIVE
[2020-04-17] MEDS ORDERED: miSOPROStoL 200 MCG TABLET ONE (22:53)
--- NOTE | 2020-04-17 22:59 | PROVIDER PROGRESS NOTE ---
Subjective - Prog Note Date Prog Note Date: 04/17/20 Prog Note Time: 22:57 - Subjective Subjective: Feeling a little pressure with contractions. VSS afeb Cat 1 tracing Continues good UO Ctx q2-4 Cervix 5cm/70/-1 A/P Good progress. Continue expectant mgmt Objective - Vital Signs/Intake & Output Vital Signs: Vital Signs x48h Temp Pulse Resp BP Pulse Ox 04/17/20 19:31 99.3 F 92 18 118/61 100 Intake & Output: Intake & Output 04/14/20 04/15/20 04/16/20 04/17/20 23:59 23:59 23:59 23:59 Intake Total 920.833 Balance 920.833 - Lab Results Fish Bones: 04/17/20 14:25 Other Labs: Lab Results x24hrs 04/17/20 04/17/20 Range/Units 14:25 14:25 WBC 8.1 (4.8-10.8) x10^3/uL RBC 3.52 L (4.20-5.40) 10^6/uL Hgb 9.8 L (12.0-16.0) g/dL Hct 31.0 L (37.0-47.0) % MCV 88.1 (81.0-99.0) fL MCH 27.8 (27.0-31.0) pg MCHC 31.6 L (32.0-36.0) g/dL RDW 15.0 (12.0-15.0) % Plt Count 238 (130-450) 10^3/uL MPV 9.8 (7.9-10.8) fL Neut # (Auto) 5.1 (1.5-6.6) 10^3/uL Lymph # (Auto) 1.9 (1.5-3.5) 10^3/uL [place] # (Auto) 0.9 (0.0-1.0) 10^3/uL Eos # (Auto) 0.1 (0.0-0.7) 10^3/uL Baso # (Auto) 0.0 (0.0-0.1) 10^3/uL Absolute Nucleated RBC 0.00 x10^3/uL Nucleated RBC % 0.0 /100WBC Blood Type O NEGATIVE Antibody Screen NEGATIVE
--- NOTE | 2020-04-18 00:18 | PROVIDER PROGRESS NOTE ---
Subjective - Prog Note Date Prog Note Date: 04/18/20 Prog Note Time: 00:17 - Subjective Subjective: Comfortable VSS afeb Cat 1 Contractions spacing q3-5. Will start pitocin Objective - Vital Signs/Intake & Output Vital Signs: Vital Signs x48h Temp Pulse Resp BP Pulse Ox 04/17/20 19:31 99.3 F 92 18 118/61 100 Intake & Output: Intake & Output 04/15/20 04/16/20 04/17/20 04/18/20 23:59 23:59 23:59 23:59 Intake Total 0.833 Balance 0.833 - Lab Results Fish Bones: 04/17/20 14:25 Other Labs: Lab Results x24hrs 04/17/20 04/17/20 Range/Units 14:25 14:25 WBC 8.1 (4.8-10.8) x10^3/uL RBC 3.52 L (4.20-5.40) 10^6/uL Hgb 9.8 L (12.0-16.0) g/dL Hct 31.0 L (37.0-47.0) % MCV 88.1 (81.0-99.0) fL MCH 27.8 (27.0-31.0) pg MCHC 31.6 L (32.0-36.0) g/dL RDW 15.0 (12.0-15.0) % Plt Count 238 (130-450) 10^3/uL MPV 9.8 (7.9-10.8) fL Neut # (Auto) 5.1 (1.5-6.6) 10^3/uL Lymph # (Auto) 1.9 (1.5-3.5) 10^3/uL [place] # (Auto) 0.9 (0.0-1.0) 10^3/uL Eos # (Auto) 0.1 (0.0-0.7) 10^3/uL Baso # (Auto) 0.0 (0.0-0.1) 10^3/uL Absolute Nucleated RBC 0.00 x10^3/uL Nucleated RBC % 0.0 /100WBC Blood Type O NEGATIVE Antibody Screen NEGATIVE
[2020-04-18] MEDS: AMPICILLIN 1 GM in SODIUM CHLORIDE 0.9% MINIBAG 100 ML IV SCH (00:45)
--- NOTE | 2020-04-18 01:56 | PROVIDER PROGRESS NOTE ---
Subjective - Prog Note Date Prog Note Date: 04/18/20 Prog Note Time: 01:55 - Subjective Subjective: Continues comfortable VSS afeb Contractions q2-4 w pit at 2 AROM clear Cx 7cm/70%/-1 S/P PCN x3 A/P Good progress. Expect Objective - Vital Signs/Intake & Output Vital Signs: Vital Signs x48h Temp Pulse Resp BP Pulse Ox 04/17/20 19:31 99.3 F 92 18 118/61 100 Intake & Output: Intake & Output 04/15/20 04/16/20 04/17/20 04/18/20 23:59 23:59 23:59 23:59 Intake Total 2020.833 Output Total 250 1600 Balance 1770.833 -1600 - Lab Results Fish Bones: 04/17/20 14:25 Other Labs: Lab Results x24hrs 04/17/20 04/17/20 Range/Units 14:25 14:25 WBC 8.1 (4.8-10.8) x10^3/uL RBC 3.52 L (4.20-5.40) 10^6/uL Hgb 9.8 L (12.0-16.0) g/dL Hct 31.0 L (37.0-47.0) % MCV 88.1 (81.0-99.0) fL MCH 27.8 (27.0-31.0) pg MCHC 31.6 L (32.0-36.0) g/dL RDW 15.0 (12.0-15.0) % Plt Count 238 (130-450) 10^3/uL MPV 9.8 (7.9-10.8) fL Neut # (Auto) 5.1 (1.5-6.6) 10^3/uL Lymph # (Auto) 1.9 (1.5-3.5) 10^3/uL Reeves # (Auto) 0.9 (0.0-1.0) 10^3/uL Eos # (Auto) 0.1 (0.0-0.7) 10^3/uL Baso # (Auto) 0.0 (0.0-0.1) 10^3/uL Absolute Nucleated RBC 0.00 x10^3/uL Nucleated RBC % 0.0 /100WBC Blood Type O NEGATIVE Antibody Screen NEGATIVE
[2020-04-18] MEDS ORDERED: LIDOCAINE-MPF 1% 5 ML VIAL ONE (03:17)
--- NOTE | 2020-04-18 03:55 | PROVIDER PROGRESS NOTE ---
Subjective - Prog Note Date Prog Note Date: 04/18/20 Prog Note Time: 03:55 - Subjective Subjective: Anterior lip reduced. +2 station. Will start pushing Objective - Vital Signs/Intake & Output Intake & Output: Intake & Output 04/15/20 04/16/20 04/17/20 04/18/20 23:59 23:59 23:59 23:59 Intake Total 2020.833 Output Total 250 1600 Balance 1770.833 -1600 - Lab Results Fish Bones: 04/17/20 14:25 Other Labs: Lab Results x24hrs 04/17/20 04/17/20 Range/Units 14:25 14:25 WBC 8.1 (4.8-10.8) x10^3/uL RBC 3.52 L (4.20-5.40) 10^6/uL Hgb 9.8 L (12.0-16.0) g/dL Hct 31.0 L (37.0-47.0) % MCV 88.1 (81.0-99.0) fL MCH 27.8 (27.0-31.0) pg MCHC 31.6 L (32.0-36.0) g/dL RDW 15.0 (12.0-15.0) % Plt Count 238 (130-450) 10^3/uL MPV 9.8 (7.9-10.8) fL Neut # (Auto) 5.1 (1.5-6.6) 10^3/uL Lymph # (Auto) 1.9 (1.5-3.5) 10^3/uL [place] # (Auto) 0.9 (0.0-1.0) 10^3/uL Eos # (Auto) 0.1 (0.0-0.7) 10^3/uL Baso # (Auto) 0.0 (0.0-0.1) 10^3/uL Absolute Nucleated RBC 0.00 x10^3/uL Nucleated RBC % 0.0 /100WBC Blood Type O NEGATIVE Antibody Screen NEGATIVE
--- NOTE | 2020-04-18 04:31 | DELIVERY NOTE ---
Delivery Note - Labor Labor: positive: Augmented by oxytocin - Delivery Method Delivery Method: positive: Spontaneous vaginal delivery - Cervical Ripening Method Cervical Ripening Method: positive: Balloon device, Misoprostil - Presentation Presentation: positive: Vertex, OA - occiput anterior - Nuchal Cord Nuchal Cord: positive: Present (X1 tight, not reduced) - Anesthetic Anesthetic Type: - Amniotic Fluid Description Amniotic Fluid Description: positive: Clear - Laceration Laceration: positive: None - Delivery Outcome Delivery Outcome: positive: Livebirth - Brandon Brandon: positive: Placed in direct skin contact with mother, Suctioned, Bulb syringe, Warmed, Lockhart used Brandon sex: positive: Female - Cord Cord: positive: 3 vessels - Placenta Placenta: positive: Intact, Spontaneous - Estimated Blood Loss Estimated Blood Loss (in cc): 300 - Post Delivery Events Post Delivery Events: positive: No post delivery events - Delivery Comments (Free Text/Narrative) Delivery Comments (Free Text/Narrative): of 3154gm female apgars 9/9 delivered from direct OA at 04:15. Tight nuchal cord x1 not reducible. Spontaneous cry. Placenta delivered with light traction, intact with normally inserted 3 vessel cord. Cervix, vagina, perineum, rectum intact. Epidural anesthesia EBL 300cc Pitocin and miso given (400mcg PO, 600mcg IN) I performed the entire procedure.
--- NOTE | 2020-04-18 04:36 | DISCHARGE SUMMARY ---
"Discharge Summary Admit Date: 04/17/20 Discharging Provider: Neris Paez MD Code Status: Attempt Resuscitation Condition at Discharge: Good Discharge Disposition: 01 Home, Self Care - DIAGNOSES Admission Diagnoses: at 39w0d with arrhythmia Iron deficiency anemia - HPI History of Present Illness: 29yo now P3 GBS+, O neg at 39w0d by LMP c/w first trimester US presented for scheduled IOL secondary to arrhythmia. No n/v/f/c or dysuria. No fluid leak or bleeding. Rare, mild ctx. Normal activity. - CONSULTS | PROCEDURES Procedures: - HOSPITAL COURSE Hospital Course: On admission PCN for GBS prophylaxis was started. She was given misoprostol orally and a cervical balloon was placed. She became uncomfortable with the first dose of miso and epidural was placed. Pitocin was started and at 7cm, AROM was done. She progressed to full dilation and delivered a 3154gm female apgars 9/9 on 04/18/20. There were no lacerations. EBL 300cc. hgb was 10.2 and she received IV iron. Her course was uncomplicated. She is planning Nexplanon for contraception. - ALLERGIES Allergies/Adverse Reactions: Allergies Allergy/AdvReac Type Severity Reaction Status Date / Time No Known Drug Allergies Allergy Verified 04/17/20 15:08 - MEDICATIONS Home Medications: Ambulatory Orders Medication Instructions Recorded Confirmed Vit,Calc76/Iron/Folic 1 tab PO DAILY 04/17/20 04/17/20 [Pnv 29-1 Tablet] - PHYSICAL EXAM AT DISCHARGE General Appearance: positive: No acute distress, Alert Respiratory: positive: No respiratory distress Abdomen: positive: Non-tender, No distention (Fundus firm below umbilicus) - LABS Result Diagrams: 04/18/20 09:05"
[2020-04-18] MEDS ORDERED: WITCH HAZEL/GLYCERIN 1 PAD TOP PRN (04:39)
[2020-04-18] MEDS ORDERED: HYDROCORTISONE 1% CREAM 28 GM TUBE PR PRN (04:39)
[2020-04-18] MEDS ORDERED: LACTATED RINGERS 1,000 ML IV SCH (05:00)
[2020-04-18] MEDS: IBUPROFEN 600 MG TABLET PO PRN ×3 (06:29→19:03)
[2020-04-18] MEDS: ACETAMINOPHEN 325 MG TABLET PO PRN ×3 (06:33→19:03)
[2020-04-18] MEDS: oxyCODONE 5 MG TABLET PO PRN ×4 (08:05→21:17)
--- NOTE | 2020-04-18 08:33 | PROVIDER PROGRESS NOTE ---
Subjective - Prog Note Date Prog Note Date: 04/18/20 Prog Note Time: 08:31 - Subjective Subjective: Feeling well, some mild pain. Up to void, feels emptying bladder Voided 600cc VSS afeb Normal lochia Fundus firm at umbilicus Hgb pending. IV iron today. A/P Stable continue routine care Objective - Vital Signs/Intake & Output Intake & Output: Intake & Output 04/15/20 04/16/20 04/17/20 04/18/20 23:59 23:59 23:59 23:59 Intake Total 2020.833 1000 Output Total 250 3775 Balance 0557.350 -3065 - Lab Results Fish Bones: 04/17/20 14:25 Other Labs: Lab Results x24hrs 04/17/20 04/17/20 Range/Units 14:25 14:25 WBC 8.1 (4.8-10.8) x10^3/uL RBC 3.52 L (4.20-5.40) 10^6/uL Hgb 9.8 L (12.0-16.0) g/dL Hct 31.0 L (37.0-47.0) % MCV 88.1 (81.0-99.0) fL MCH 27.8 (27.0-31.0) pg MCHC 31.6 L (32.0-36.0) g/dL RDW 15.0 (12.0-15.0) % Plt Count 238 (130-450) 10^3/uL MPV 9.8 (7.9-10.8) fL Neut # (Auto) 5.1 (1.5-6.6) 10^3/uL Lymph # (Auto) 1.9 (1.5-3.5) 10^3/uL [place] # (Auto) 0.9 (0.0-1.0) 10^3/uL Eos # (Auto) 0.1 (0.0-0.7) 10^3/uL Baso # (Auto) 0.0 (0.0-0.1) 10^3/uL Absolute Nucleated RBC 0.00 x10^3/uL Nucleated RBC % 0.0 /100WBC Blood Type O NEGATIVE Antibody Screen NEGATIVE
[2020-04-18] MEDS ORDERED: MEASLES,MUMPS & RUBELLA VACC 0.5 ML VIAL SUBQ ONE (09:00)
[2020-04-18] MEDS ORDERED: SODIUM CHLORIDE 0.9% IV ONE (09:30)
[2020-04-18] MEDS ORDERED: IRON DEXTRAN IV ONE (09:30)
[2020-04-18] MEDS: DOCUSATE SODIUM 100 MG CAPSULE PO SCH (21:17)
[2020-04-19] MEDS: ACETAMINOPHEN 325 MG TABLET PO PRN ×2 (00:54→07:54)
[2020-04-19] MEDS: IBUPROFEN 600 MG TABLET PO PRN ×2 (00:55→07:54)
[2020-04-19] MEDS: oxyCODONE 5 MG TABLET PO PRN (04:34)
[2020-04-19] MEDS ORDERED: RHO(D) IMMUNE GLOBULIN 300 MCG SYRINGE IM ONE (06:54)
[2020-04-19] MEDS: DOCUSATE SODIUM 100 MG CAPSULE PO SCH (07:54)
--- NOTE | 2020-04-19 08:32 | PROVIDER PROGRESS NOTE ---
Subjective - Prog Note Date Prog Note Date: 04/19/20 Prog Note Time: 08:30 - Subjective Subjective: PPD 2 Feeling well. Ambulating, reg diet. Minimal lochia well. VSS afeb Abd soft, non-tender. Fundus firm, well below umbilicus A/P Stable. Plan DC home today Planning Nexplanon. Objective - Vital Signs/Intake & Output Vital Signs: Vital Signs x48h Temp Pulse Resp BP Pulse Ox 04/19/20 04:37 97.9 F 67 16 108/62 100 Intake & Output: Intake & Output 04/16/20 04/17/20 04/18/20 04/19/20 23:59 23:59 23:59 23:59 Intake Total 2020.833 3174.000 500 Output Total 250 3775 Balance 1770.833 -601.000 500 - Lab Results Fish Bones: 04/18/20 09:05 Other Labs: Lab Results x24hrs 04/18/20 04/18/20 04/17/20 Range/Units 17:45 09:05 09:05 Hgb 10.2 L (12.0-16.0) g/dL Blood Type O NEGATIVE Blood Type Recheck O NEGATIVE Weak D (Du) WEAK-D NEGATIVE Maternal Bleed NEGATIVE (NEGATIVE)
[2020-04-19 08:37] VITALS: BP 107/55
--- NOTE | 2020-04-19 10:27 | Discharge Plan ---
Discharge Plan Problem Reviewed?: Yes Disposition: Home, Self Care Condition: Good Prescriptions: oxyCODONE [Roxicodone] 5 mg PO Q4HR PRN #20 tablet PRN Reason: Pain Ibuprofen [Motrin] 600 mg PO Q6H PRN #30 tablet PRN Reason: Pain Acetaminophen [Tylenol] 650 mg PO Q6H PRN #50 tablet PRN Reason: Pain Diet: Regular Activity Restrictions: pelvic rest Shower Restrictions: No Driving Restrictions: No No Smoking: If you smoke, Please STOP! Call for help.
--- NOTE | 2020-04-19 10:37 | Discharge Plan ---
Discharge Plan Problem Reviewed?: Yes Disposition: Home, Self Care Condition: Good Prescriptions: Ibuprofen [Motrin] 600 mg PO Q6H PRN #30 tablet PRN Reason: Pain oxyCODONE/ACET 5/325 [Percocet 5 mg/325 mg] 1 each PO Q4-6H PRN #15 tablet PRN Reason: Pain Acetaminophen [Tylenol] 650 mg PO Q6H PRN #50 tablet PRN Reason: Pain Diet: Regular Activity Restrictions: pelvic rest Shower Restrictions: No Driving Restrictions: No No Smoking: If you smoke, Please STOP! Call for help.
--- NOTE | 2020-04-19 13:33 | Labor Flowsheet ---
Labor Flowsheet Datetime Report Generated by CPN: 04/19/2020 13:32 Datetime: 04/19/2020 08:29 VITAL SIGNS NBP Sys/Faviola/Mean (mmHg): 107 : 55 : 68 Pulse: 65 Datetime: 04/18/2020 20:05 SpO2 (%): 98 Datetime: 04/18/2020 06:04 Stage of : Recovery Respirations: 18 Temperature (C): 37.4 Datetime: 04/18/2020 05:21 PAIN Pain Scale: 0 Datetime: 04/18/2020 04:30 ANESTHESIA Anesthesia Plans: Epidural Anesthesia Comments: epidural pump off Datetime: 04/18/2020 04:18 LaborFlag: Labor Datetime: 04/18/2020 03:53 UTERINE ACTIVITY Monitor Mode: External Frequency (min): 2-3 Quality: Strong Duration (sec): 60+ Pattern: Normal: <= 5 Contractions in 10 Minutes Resting Tone (Palpate): Relaxed ASSESSMENT A Monitor Mode: External US Monitor Interventions for FHR: Ultrasound Adjusted FHR Baseline Rate : 125 Variability: Moderate 6-25 bpm Accelerations: 15X15 Decelerations: Early VAGINAL EXAM Dilatation (cm): 10.0 Exam by: DR Erber Vaginal Exam Comments: reduced and ant lip Datetime: 04/18/2020 03:50 MEDICATIONS Pitocin (milliunits): Increased to @ 5 Datetime: 04/18/2020 03:24 Temperature Route: Oral Pain Presence: Intermittent Pain Type: Burning; Cramping Pain Location: Abdomen; Back Pain Goal: 0 Datetime: 04/18/2020 03:16 Anesthesia Interview: E Datetime: 04/18/2020 03:14 Anesthesia Level Check: T10- Umbilicus Datetime: 04/18/2020 02:24 Patient Position/Activity: Right Lateral Datetime: 04/18/2020 01:53 Effacement (%): 70 Station: 0 Membrane Status: Ruptured Membranes Ruptured Date/Time: 04/18/2020 01:53 Membranes Rupture Method: Artificial Amniotic Fluid Color: Clear Amniotic Fluid Amount: Moderate Amniotic Fluid Odor: Normal Vaginal Bleeding: Normal Show Datetime: 04/18/2020 01:29 Monitor Interventions for UA: [place] Adjusted Category: Category I Datetime: 04/18/2020 01:00 Pitocin Checklist: At Least 1 Acceleration of 15 bpm x 15 Seconds in 30 Minutes or Adequate Variabi lity Datetime: 04/18/2020 00:51 Antibiotics: Ampicillin IV 1 Gm Datetime: 04/18/2020 00:23 TEACHING Instructional Method: Verbal Plan of Care: Plan of Care Discussed; Induction Labor/Induction: Augmentation Datetime: 04/17/2020 20:40 Patient Care Comments: cook cath out Datetime: 04/17/2020 20:04 MATERNAL ASSESSMENT Level of Consciousness: Alert Headache: Denies Breath Sounds, Left: Clear and Equal Breath Sounds, Right: Clear and Equal Nausea/Vomiting: Denies RUQ Epigastric Pain: Denies Datetime: 04/17/2020 19:40 I/O Interventions: Liang Cath Inserted Datetime: 04/17/2020 19:30 FHR Baseline Changes: No Baseline Change Datetime: 04/17/2020 19:20 Epidural Procedure: Loading Dose Epidural Procedure Other: Pump Started Datetime: 04/17/2020 19:06 PROCEDURE TIME OUT Procedure Verify: Correct Patient Identity; Correct Side and Site are Marked; Accurate Procedure Co nsent Form; Agreement on Procedure to be Done; Correct Patient Position; Relevant Images and Results are Properly Labeled and Displayed; Addressed Need to Administer Antibiotics or Fluids for Irrigation ; Safety Precautions Based on Patient History or Medication Use Epidural Positioning: Sitting Datetime: 04/17/2020 19:00 Oxygen Method: Room Air Datetime: 04/17/2020 18:45 Comments: possible varible Datetime: 04/17/2020 18:30 PATIENT CARE IV/Blood Work: IV Bolus Started COMMUNICATION Communication: Call/Page Placed to Provider Communication Comments: greyson aube and dr ashraf called for patient request for epidural Datetime: 04/17/2020 17:59 Contraction Comments: maternal movement unable to determine contraction pattern possibly 1-3 min ap part Datetime: 04/17/2020 16:32 Cervical Ripening Agents: Liang Balloon; Cytotec @
== END 2020-04-19 12:45 | disposition home or self-care (01) | DRG 807 ==
LOC: WFO 13:29 → FBP 13:32 → WFO 15:35 → FBP 15:36
PROVIDERS: ADMIT Obstetrics & Gynecology; ATTEND Obstetrics & Gynecology
PROC: 0U7C7ZZ Dilation of Cervix, Via Natural or Artificial Opening (ICD-10-PCS; 2020-04-17)
PROC: 10E0XZZ Delivery of Products of Conception, External Approach (ICD-10-PCS; principal; 2020-04-18)
PROC: 10907ZC Drainage of Amniotic Fluid, Therapeutic from Products of Conception, Via Natural or Artificial Opening (ICD-10-PCS; 2020-04-18)
DX: O76 Abnormality in fetal heart rate and rhythm complicating labor and delivery (principal); Z37.0 Single live birth; O99.824 Streptococcus B carrier state complicating childbirth; O99.02 Anemia complicating childbirth; D50.9 Iron deficiency anemia, unspecified; O69.1XX0 Labor and delivery complicated by cord around neck, with compression, not applicable or unspecified; Z3A.39 39 weeks gestation of pregnancy
CPT/HCPCS: 36415; 83033; 85018; 85025; 86850; 86900; 86901; A9270; J1750; J7120

== ENCOUNTER 2020-05-14 07:00 | Outpatient (CLI) | payer OTHER ==
[2020-05-14 20:03] LABS: CANDIDA GROUP DNA NEGATIVE (NEGATIVE); CANDIDA KRUSEI DNA NEGATIVE (NEGATIVE); TRICHOMONAS VAGINALIS DNA NEGATIVE (NEGATIVE)
== END 2020-05-14 23:59 | disposition home or self-care (01) ==
LOC: LAB.R 07:00
PROVIDERS: ATTEND Advanced Practice Midwife
DX: N89.8 Other specified noninflammatory disorders of vagina (principal)
CPT/HCPCS: 87661; 87801